=== PATIENT | female | born 1970 | race Caucasian/White ===

== ENCOUNTER 2023-03-09 11:25 | Emergency (ER) | payer MEDICAID ==
[~2023-03-09] VITALS: Ht 160 cm; Wt 42.3 kg
[~2023-03-09 11:25] MED LIST: AMOXICILLIN 8751 TAB PO; ENSURE 237 ML237 ML PO; ENULOSE10 GM/15 M PO; INDERAL 10MG10 MG PO; INDERAL40 MG PO; OXY IR5 MG PO; TYLENOL 500MG500 MG PO
[2023-03-09 11:55] LABS: INR 2.5 (0.8-3.0); PROTHROMBIN TIME 27.1 SECONDS (9.7-12.8)
[2023-03-09 11:57] LABS: PARTIAL THROMBOPLASTIN TIME 40.7 SECONDS (26.0-37.0)
[2023-03-09 11:58] LABS: MEAN CELL VOLUME 109 fl (80.0-100.0); MEAN CORPUSCULAR HGB CONC 34 g/dl (33.0-37.0); MEAN PLATELET VOLUME 9.6 fl (7.4-10.4); PLATELET COUNT 80 K/mm3 (130-400); RED BLOOD COUNT 2.14 M/mm3 (4.10-5.30); REDCELL DISTRIBUTION WIDTH-CV 16.1 % (11.5-14.5)
[2023-03-09 11:59] LABS: HEMATOCRIT 23.3 % (37.0-47.0); MEAN CORPUSCULAR HEMOGLOBIN 37 pg (27-31)
[2023-03-09 12:08] LABS: ALBUMIN 3.2 gm/dL (3.5-5.0); BILIRUBIN,TOTAL 12.8 mg/dL (0.2-1.2); CALCIUM 9.2 mg/dL (8.4-10.2); CREATININE, serum 0.47 mg/dL (0.57-1.11); POTASSIUM 3.2 mmol/L (3.5-4.5); TOTAL PROTEIN 6.6 gm/dL (6.2-8.1)
[2023-03-09 12:13] LABS: TROPONIN-I 0.026 ng/mL (0.00-0.033)
[2023-03-09 12:51] LABS: ANISOCYTOSIS 1+; BAND 7 % (0-10); BASOPHIL 1 % (0-2); LYMPHOCYTE 8 % (20.0-51.0); MYELOCYTE 1 % (0-0); NEUTROPHILS 76 % (42.0-75.2); PLATELET ESTIMATE DECREASED (NORMAL)
[2023-03-09 12:52] LABS: BURR CELLS 2+
[2023-03-09 14:46] LABS: COLLECTION METHOD CLEAN CATCH
[2023-03-09 15:13] LABS: MUCOUS Present (NOT PRESENT); SQUAMOUS EPITHELIAL 0-2 /hpf (0-10); URINE APPEARANCE Clear (CLEAR/HAZY); URINE BACTERIA Rare /hpf (NONE SEEN); URINE COLOR Amber (YELLOW); URINE GLUCOSE Negative (NEGATIVE); URINE KETONE 2+ (NEGATIVE); URINE PROTEIN(semi-quant) 1+ (NEGATIVE); URINE RBC 0-2 /hpf (0-2)
[2023-03-09 15:14] LABS: URINE BLOOD TRACE-LYSED (NEGATIVE); URINE NITRATE Negative (NEGATIVE); URINE UROBILINOGEN >=8.0 (NEGATIVE)
[2023-03-09 15:15] VITALS: BP 123/70; PULSE 79; TEMP 97.7
== END 2023-03-09 15:40 | disposition home or self-care (01) ==
LOC: COL.ER 11:25
PROVIDERS: Emergency Medicine
DX: C15.9 Malignant neoplasm of esophagus, unspecified (principal); E80.6 Other disorders of bilirubin metabolism; K74.60 Unspecified cirrhosis of liver; R00.0 Tachycardia, unspecified; R74.02 Elevation of levels of lactic acid dehydrogenase [LDH]; Z87.891 Personal history of nicotine dependence; Z92.21 Personal history of antineoplastic chemotherapy; Z28.310 Unvaccinated for COVID-19
CPT/HCPCS: J7030

== ENCOUNTER 2023-04-11 20:32 | Emergency (ER) | payer MEDICAID ==
[~2023-04-11] VITALS: Ht 152.4 cm; Wt 52.3 kg
[2023-04-11 20:34] VITALS: TEMP 99
[2023-04-11 21:00] LABS: COLLECTION METHOD IN
[2023-04-11 21:04] LABS: MEAN CELL VOLUME 108 fl (80.0-100.0); MEAN CORPUSCULAR HGB CONC 33 g/dl (33.0-37.0); MEAN PLATELET VOLUME 9.4 fl (7.4-10.4); PLATELET COUNT 88 K/mm3 (130-400); RED BLOOD COUNT 2.27 M/mm3 (4.10-5.30); REDCELL DISTRIBUTION WIDTH-CV 20.1 % (11.5-14.5)
[2023-04-11 21:17] LABS: HEMATOCRIT 24.5 % (37.0-47.0); MEAN CORPUSCULAR HEMOGLOBIN 35 pg (27-31)
[2023-04-11 21:20] LABS: ALBUMIN 1.9 gm/dL (3.5-5.0); BILIRUBIN,TOTAL 9.1 mg/dL (0.2-1.2); C-REACTIVE PROTEIN 4.07 mg/dL (0.00-0.50); CALCIUM 8.3 mg/dL (8.4-10.2); CREATININE, serum 0.39 mg/dL (0.57-1.11); POTASSIUM 3.4 mmol/L (3.5-4.5); TOTAL PROTEIN 5.2 gm/dL (6.2-8.1)
[2023-04-11 21:26] LABS: URINE APPEARANCE Cloudy (CLEAR/HAZY); URINE BLOOD TRACE-INTACT (NEGATIVE); URINE COLOR Yellow (YELLOW); URINE GLUCOSE Negative (NEGATIVE); URINE KETONE Negative (NEGATIVE); URINE NITRATE Negative (NEGATIVE); URINE PROTEIN(semi-quant) Negative (NEGATIVE); URINE UROBILINOGEN 0.2 E.U/dL (0.2-1.0)
[2023-04-11 21:29] LABS: SQUAMOUS EPITHELIAL 0-2 /hpf (0-10); URINE RBC None Seen /hpf (0-2)
[2023-04-11 21:52] LABS: ANISOCYTOSIS 2+; BAND 15 % (0-10); LYMPHOCYTE 7 % (20.0-51.0); NEUTROPHILS 74 % (42.0-75.2); PLATELET ESTIMATE DECREASED (NORMAL)
[2023-04-11 21:53] LABS: SCHISTOCYTES 1+
[2023-04-11 22:01] VITALS: BP 129/68; PULSE 89
== END 2023-04-11 22:22 | disposition home or self-care (01) ==
LOC: COL.ER 20:32
PROVIDERS: Nurse Practitioner Primary Care
DX: C15.9 Malignant neoplasm of esophagus, unspecified (principal); K74.60 Unspecified cirrhosis of liver
CPT/HCPCS: J7030